=== PATIENT | female | born 1975 | race Caucasian/White ===

== ENCOUNTER 2017-01-19 05:15 | Inpatient (IN) | payer BC ==
[~2017-01-19] VITALS: Ht 162.6 cm; Wt 74.8 kg
[2017-01-19] MEDS ORDERED: LR 1,000 ML IV ONE (05:28)
[2017-01-19] MEDS ORDERED: CEFAZOLIN 2 GM IVPB PREMIX 50 ML IV ONE (05:30)
[2017-01-19 06:12] VITALS: BP_SYST 113
[2017-01-19 06:34] LABS: BASOPHILS % (AUTO) 0.4 % (0.0-2.0); EOSINOPHILS # (AUTO) 0.1 K/uL (0.0-0.4); EOSINOPHILS % (AUTO) 0.7 % (0.0-4.0); HEMATOCRIT 36.6 % (36-48); HEMOGLOBIN 12.3 g/dL (12.0-16.0); LYMPHOCYTES # (AUTO) 1.5 K/uL (1.0-5.5); LYMPHOCYTES % (AUTO) 17.7 % (20.5-51.5); MEAN CORPUSCULAR HEMOGLOBIN 32 pg (27-31); MEAN CORPUSCULAR HGB CONC 34 % (32-36); MEAN CORPUSCULAR VOLUME 94 fL (79.0-98.0); MONOCYTES # (AUTO) 0.4 K/uL (0.0-1.0); MONOCYTES % (AUTO) 4.8 % (1.7-9.3); NEUTROPHILS # (AUTO) 6.7 K/uL (1.8-7.7); NEUTROPHILS % (AUTO) 76.4 % (40.0-70.0); PLATELET COUNT (AUTO) 138 K/uL (130-430); RED BLOOD CELL COUNT(AUTO) 3.89 MIL/uL (4.2-6.2); RED CELL DISTRIBUTION WIDTH 13.2 % (9.0-15.0); WHITE BLOOD COUNT (AUTO) 8.7 K/uL (4.8-10.8)
[2017-01-19] MEDS ORDERED: DIPH-TET-PERTUS Vaccine 0.5 ML VIAL/Tdap (ADACEL) I.M. PRN (07:15)
[2017-01-19] MEDS ORDERED: MIDAZOLAM HCL 5 MG/5 ML VIAL IVP ONE (07:40)
[2017-01-19] MEDS ORDERED: MORPHINE SULFATE 10MG/10ML PF AMP EP ONE (07:40)
[2017-01-19] MEDS ORDERED: LR 1,000 ML IV.SOLN IV ONE (07:40)
[2017-01-19] MEDS ORDERED: ONDANSETRON HCL 4 MG/2 ML VIAL IVP ONE (07:40)
[2017-01-19] MEDS ORDERED: NS IRRIG SOLN 1000 ML IR ONE (07:40)
[2017-01-19] MEDS ORDERED: ePHEDrine sulfate 50 MG/ML VIAL IV ONE (07:40)
[2017-01-19] MEDS ORDERED: OXYTOCIN 10 UNIT/ML VIAL IV ONE (07:40)
[2017-01-19] MEDS ORDERED: LR 1,000 ML IV SCH ×2 (08:40→08:59)
[2017-01-19] MEDS ORDERED: METOCLOPRAMIDE HCL 10 MG/2 ML VIAL IVP PRN (08:45)
[2017-01-19] MEDS ORDERED: ONDANSETRON HCL 4 MG/2 ML VIAL IVP PRN (08:45)
[2017-01-19] MEDS ORDERED: KETOROLAC TROMETHAMINE 60 MG/2 ML VIAL IM PRN (08:45)
[2017-01-19] MEDS ORDERED: MORPHINE SULFATE 10MG/10ML PF AMP SP SCH (08:45)
[2017-01-19] MEDS ORDERED: MEPERIDINE HCL/PF 50 MG/ML AMP IVP PRN ×2 (08:45)
[2017-01-19] MEDS ORDERED: NALOXONE HCL 0.4 MG/ML AMP (NARCAN) IVP PRN (08:45)
[2017-01-19] MEDS ORDERED: OXYTOCIN/NORMAL SALINE 1,000 ML IV ONE ×2 (08:59→09:16)
[2017-01-19] MEDS ORDERED: BISACODYL 10 MG/SUPPOSITORY RC PRN (09:00)
[2017-01-19] MEDS ORDERED: LANOLIN 7 GM OINT. TP PRN (09:00)
[2017-01-19] MEDS ORDERED: ANUSOL 1 EA SUPP.RECT (PREPARATION H) RC PRN (09:00)
[2017-01-19] MEDS ORDERED: RHO(D) IMMUNE GLOBULIN/MALTOSE 1500 UNITS/1.3 ML (WINHRO) IM PRN (09:00)
[2017-01-19] MEDS ORDERED: HYDROcodone/ACETAMIN 5-325 MG TAB (NORCO/ VICODIN) PO PRN (09:00)
[2017-01-19] MEDS ORDERED: MEASLES,MUMPS&RUBELLA VACC/PF 12500 UNIT/0.5 ML VIAL SUBQ PRN (09:00)
[2017-01-19] MEDS ORDERED: SENNOSIDES/DOCUSATE SODIUM 1 TAB TABLET(SENOKOT-S) PO PRN (09:00)
[2017-01-19] MEDS: DIPHENHYDRAMINE INJ 50 MG/ML VIAL IM PRN ×3 (09:41→23:43)
[2017-01-19] MEDS ORDERED: DIPHENHYDRAMINE INJ 50 MG/ML VIAL ONE (09:45)
[2017-01-19] MEDS: CEFAZOLIN 1 GM IVPB PREMIX 50 ML IV SCH ×3 (11:58→23:37)
[2017-01-19] MEDS: KETOROLAC TROMETHAMINE 30 MG VIAL IVP SCH ×2 (18:03→23:38)
[2017-01-19 18:07] VITALS: BP_SYST 113
[2017-01-19] MEDS ORDERED: TEMAZEPAM 15 MG CAPSULE PO PRN (21:00)
[2017-01-19] MEDS: SIMETHICONE 80 MG TAB.CHEW PO PRN (23:38)
[2017-01-19] MEDS: DOCUSATE SODIUM 100 MG CAPSULE PO PRN (23:38)
[2017-01-20] MEDS: KETOROLAC TROMETHAMINE 30 MG VIAL IVP SCH ×2 (04:54→13:22)
[2017-01-20] MEDS: SIMETHICONE 80 MG TAB.CHEW PO PRN ×2 (04:54→16:16)
[2017-01-20 06:34] LABS: EOSINOPHILS # (AUTO) 0.1 K/uL (0.0-0.4); HEMOGLOBIN 10.6 g/dL (12.0-16.0); LYMPHOCYTES # (AUTO) 0.9 K/uL (1.0-5.5); MEAN CORPUSCULAR HEMOGLOBIN 32 pg (27-31); WHITE BLOOD COUNT (AUTO) 9.7 K/uL (4.8-10.8)
[2017-01-20 06:44] LABS: BASOPHILS % (AUTO) 0.2 % (0.0-2.0); EOSINOPHILS % (AUTO) 0.6 % (0.0-4.0); HEMATOCRIT 31.4 % (36-48); LYMPHOCYTES % (AUTO) 9.5 % (20.5-51.5); MEAN CORPUSCULAR HGB CONC 34 % (32-36); MEAN CORPUSCULAR VOLUME 95 fL (79.0-98.0); MONOCYTES # (AUTO) 0.4 K/uL (0.0-1.0); MONOCYTES % (AUTO) 4.3 % (1.7-9.3); NEUTROPHILS # (AUTO) 8.3 K/uL (1.8-7.7); NEUTROPHILS % (AUTO) 85.4 % (40.0-70.0); PLATELET COUNT (AUTO) 128 K/uL (130-430); RED BLOOD CELL COUNT(AUTO) 3.32 MIL/uL (4.2-6.2); RED CELL DISTRIBUTION WIDTH 13.5 % (9.0-15.0)
[2017-01-20] MEDS: OXYCODONE/ACETAMINOPHEN 5-325 TABLET PO PRN ×3 (10:11→21:49)
[2017-01-20] MEDS: DOCUSATE SODIUM 100 MG CAPSULE PO PRN (10:11)
[2017-01-20] MEDS: IBUPROFEN 600 MG TABLET PO SCH ×2 (13:41→20:09)
[2017-01-20] MEDS ORDERED: IBUPROFEN 600 MG TABLET PO SCH (18:00)
[2017-01-21] MEDS: IBUPROFEN 600 MG TABLET PO SCH ×4 (01:46→18:00)
[2017-01-21] MEDS: OXYCODONE/ACETAMINOPHEN 5-325 TABLET PO PRN ×4 (04:22→21:11)
[2017-01-21] MEDS: SIMETHICONE 80 MG TAB.CHEW PO PRN (08:02)
[2017-01-21] MEDS: DOCUSATE SODIUM 100 MG CAPSULE PO PRN (08:03)
[2017-01-22] MEDS: IBUPROFEN 600 MG TABLET PO SCH ×3 (00:01→11:52)
[2017-01-22] MEDS: OXYCODONE/ACETAMINOPHEN 5-325 TABLET PO PRN ×3 (04:53→11:53)
[2017-01-22] MEDS: DOCUSATE SODIUM 100 MG CAPSULE PO PRN (09:20)
[2017-01-22] MEDS: SIMETHICONE 80 MG TAB.CHEW PO PRN (09:25)
== END 2017-01-22 13:15 | disposition home or self-care (01) | DRG 766 ==
LOC: SPU 05:15
PROVIDERS: ADMIT Specialist; ATTEND Specialist
PROC: 3E0234Z Introduction of Serum, Toxoid and Vaccine into Muscle, Percutaneous Approach (ICD-10-PCS; 2017-01-19)
PROC: 10D00Z1 Extraction of Products of Conception, Low, Open Approach (ICD-10-PCS; principal; 2017-01-19 07:30)
DX: O34.211 Maternal care for low transverse scar from previous cesarean delivery (principal); Z3A.39 39 weeks gestation of pregnancy; Z37.0 Single live birth; Z23 Encounter for immunization; Z88.0 Allergy status to penicillin
CPT/HCPCS: 36415; 76700-TC; 82947-TC; 85025; 86592; 86886; 86900; 86901; 94010; 94760; J0690; J1200; J1885; J2250; J2274; J2405; J2590; J7120